=== PATIENT | female | born 1970 | race Caucasian/White ===

== ENCOUNTER 2021-10-21 09:50 | Emergency (ER) | payer MEDICAID, SELFPAY ==
[2021-10-21 09:51] VITALS: BP 131/81; PULSE 84; RESP 14; TEMP 36.3; O2SAT 98; BMI 23.8
--- NOTE | 2021-10-21 10:18 | EX.ED.VIS.UR ---
HPI HPI - URI History of Present Illness Chief Complaint: Ear Problem Informant: patient and spouse/S.O. Onset/Context/Timing Onset: Days (3) Context: Gradual Onset Timing: Continuous Quality: ache Location: left ear Current Severity: Moderate Maximum Severity: Moderate Worsened by: - (nothing) Relieved by: - (nothing) Associated Symptoms Associated Symptoms: Positive for Nasal Congestion, Headache, Myalgias, Vomiting (resolved), Diarrhea (resolved), Nonproductive cough and - (fevers); Negative for Shortness of Breath and Chest Pain Narrative Narrative: Patient presents with an earache for the past 3 days. She states she only had some discharge (small amount) coming out that was thick orange after putting sweet oil in her ear. She states she has had cold symptoms for the past 2 weeks, including cough, myalgias, fevers, occasional vomiting or diarrhea, the GI symptoms are now resolved. states that he has had the same symptoms that she did. When asked if they were tested for Covid, they state that no, they cannot get it for free but then admit that they have not searched for testing at all. They have not been vaccinated. states that someone in their house recently and the autopsy is not back yet. Furthermore, after I discussed the limitations of rapid Covid antigen testing for symptoms for 2 weeks, the states no, she has only had symptoms for 5 days. I asked about the discrepancy here because the patient's clearly stated that she was sick for 2 weeks, and the patient's states she just says stuff. The patient denies any dyspnea. She denies any contact with anyone that they know of with Covid. ROS ROS ED Constitutional Constitutional ED: Reports body ache(s), chills, fatigue, fever(s), headache(s) and malaise Eyes Eyes: Denies change in vision or diplopia ENT ENT ED: Reports ear pain left (Along with trouble hearing out of it), nasal congestion, rhinorrhea and sore throat; Denies tinnitus Cardiovascular Cardiovascular: Denies chest pain or palpitations Respiratory/Chest Respiratory/Chest: Reports cough; Denies dyspnea or dyspnea on exertion Gastrointestinal Gastrointestinal: Reports diarrhea; Denies abdominal pain, nausea or vomiting Genitourinary Genitourinary ED: Denies dysuria or hematuria Musculoskeletal Musculoskeletal: Denies back pain or neck pain Integumentary Denies abscess or rash Neurologic Neurologic: Reports headache(s); Denies paresthesias or weakness Psychiatric Psychiatric: Denies anxiety or suicidal thoughts PFSH PFSH Medical History no medical history no medical history (Patient denies and does not see a doctor regularly) Home Medications azithromycin [Zithromax Z-Elie] 250 mg PO DAILY 6 Days #6 tab 10/21/21 [Rx Last Taken Unknown] Allergy/AdvReac Type Severity Reaction Status Date / Time Penicillins Allergy Nausea/Vom/ Verified 10/21/21 09:54 Diarrhea Surgical History no surgical history no surgical history Social History Smoking Status: Unknown if ever smoked EXAM Physical Exam Const Vital Signs: 10/21/21 09:51 Temperature 97.3 F L Temperature Source Temporal Pulse Rate 84 Respiratory Rate 14 Blood Pressure 131/81 H Blood Pressure Mean 97 Pulse Ox 98 Oxygen Delivery Method Room Air Positive well nourished, well developed and unkempt Constitutional Narrative: Well-appearing, no distress, conversive in full sentences. General Appearance ED: unkempt, well developed and NAD HEENT Reports moist mucous membranes HEENT Narrative: Left TM partially occluded by cerumen, no obvious perforation noted, loss of light reflex, landmarks, along with erythema is noted. No discharge in EAC, some discomfort with manipulation of the pinna and tragus but not severe, without any erythema or edema of the external auditory canal. normocephalic and atraumatic Eyes PERRL and EOMs intact bilaterally Neck full ROM and supple Resp normal respiratory effort and clear to auscultation bilaterally Cardio regular rate, regular rhythm and no murmurs Rate: Negative for tachycardic GI non-tender and non-distended Auscultation: normoactive bowel sounds Palpation: soft Back/Spine no CVA tenderness General Back: other FROM Extremity normal to inspection and no calf tenderness General Extremety ED: Negative for edema, pulses abnormal or tenderness General Extremity: Negative for edema or pulses abnormal Neuro oriented x3, CN's II-XII intact bilaterally and no sensory deficits noted Sensorium / Orientation: awake and alert Motor Exam: strength 5/5 throughout Psych Appearance: unkempt Skin no rashes or lesions noted and no wounds MDM MDM MDM Narrative Medical decision making narrative: I did a rapid antigen Covid test, it returned negative. If the patient has had symptoms for 2 weeks, this would not be unusual even if she had Covid. Therefore PCR was sent as a send out since her oxygenation is excellent and she is otherwise doing okay. Will prescribe her an antibiotic for her ear. She was advised with regards to continuing to isolate per CDC recommendations. Discharge Plan Triage Chief Complaint: Ear Problem ED Provider: Dany Love Dx/Rx/DC Orders Clinical Impression: Left otitis media, Viral URI with cough, Suspected COVID-19 virus infection Instructions: Coronavirus Disease 2019 (COVID-19): Caring for Yourself or Others Prescriptions: New azithromycin [Zithromax Z-Elie] 250 mg tablet 250 mg PO DAILY 6 Days Qty: 6 RF: 0 Primary Care Provider: Care Physician,No Primary Referrals: Serena Oneill [NON-STAFF] - 1 Week if not improving Care Physician,No Primary [Primary Care Provider] - Activity Restrictions/Additional Instructions: Try to get a home portable pulse oximeter and closely watch your oxygen levels periodically. If you stay below 90% for more than a minute or so, and/or you are feeling like your breathing is getting worse, return to the emergency department for further evaluation. Disposition Disposition: Home, Self Care
[2021-10-21] MEDS: Ibuprofen 600 MG Tablet PO (10:33)
== END 2021-10-21 11:50 | disposition home or self-care (01) ==
PROVIDERS: Emergency Provider Emergency Medicine
DX: H66.92 Otitis media, unspecified, left ear (principal); J06.9 Acute upper respiratory infection, unspecified; Z20.822 Contact with and (suspected) exposure to COVID-19
CPT/HCPCS: 87426; 87635; 99283; U0005; U0003

== ENCOUNTER 2022-03-20 08:09 | Emergency (ER) | payer MEDICAID, SELFPAY ==
[2022-03-20 08:13] VITALS: BP 107/88; PULSE 76; RESP 17; TEMP 36.4; O2SAT 88; BMI 22.9
[2022-03-20 08:24] VITALS: O2SAT 94
[2022-03-20 08:27] VITALS: BP 107/88; PULSE 73; RESP 16; TEMP 36.4; O2SAT 94
--- NOTE | 2022-03-20 08:58 | RAD_ITS ---
STUDY: X-RAY CHEST REASON FOR EXAM: Female, 51 years old. SOB, cough x 2-3 days TECHNIQUE: Single frontal view COMPARISON: None. FINDINGS: There is mild right peribronchial cuffing. The peripheral lungs are clear bilaterally. There is no demonstrated pleural abnormality. Normal size heart. Normal mediastinum and brunilda. Normal visualized pulmonary arteries. Normal visualized aortic arch and descending thoracic aorta. Normal visualized thoracic spine. Normal visualized ribs, clavicles, and shoulders. There is no demonstrated abnormality of the visualized soft tissue structures of the upper abdomen. RAD/Chest 1 View (Portable) IMPRESSION: Mild right peribronchial cuffing. Electronically Signed: Kaleb Morrow MD at 9:47 EDT ,
--- NOTE | 2022-03-20 12:12 | ED.RN ---
SEE DOWNTIME DOCUMENTATION
--- NOTE | 2022-03-20 12:58 | EX.ED.VIS.UR ---
HPI HPI - URI History of Present Illness Chief Complaint: Cough Informant: patient Onset/Context/Timing Onset: Days (2) Context: Gradual Onset Timing: Continuous Quality: Pushing Location: Chest Worsened by: - (Coughing) Relieved by: - (Nothing) Associated Symptoms Associated Symptoms: Positive for Shortness of Breath, Chest Pain and Nonproductive cough; Negative for Nasal Congestion, Headache, Sinus Pressure, Myalgias, Nausea, Vomiting, Diarrhea, Hemoptysis and Productive Cough Narrative Narrative: Patient presents with cough and earache for the past 2 days. Patient states that her symptoms have gradually gotten worse. Patient admits to some pain in her chest. Patient feels like somebody is pushing on her chest. Patient states it is worse with coughing. Patient denies any sputum production. Patient admits to some subjective chills but denies any fevers. Patient admits to a mild sore throat. Patient states her pain radiates into her back. Patient denies any headaches. ROS ROS ED Constitutional Constitutional ED: Reports chills and subjective; Denies fever(s) Eyes Eyes: Denies blurry vision or change in vision ENT ENT ED: Reports ear pain right and sore throat; Denies rhinorrhea Cardiovascular Cardiovascular: Reports chest pain; Denies palpitations Respiratory/Chest Respiratory/Chest: Reports cough and dyspnea Gastrointestinal Gastrointestinal: Denies nausea or vomiting Genitourinary Genitourinary ED: Denies dysuria or hematuria Musculoskeletal Musculoskeletal: Reports back pain; Denies neck pain Integumentary Denies abscess or rash Neurologic Neurologic: Denies headache(s) or weakness Allergic/Immunologic Allergic/Immunologic ED: Denies mouth swelling or urticaria PFSH PFSH Medical History no medical history no medical history Home Medications NK 03/20/22 [History Last Taken Unknown] Allergy/AdvReac Type Severity Reaction Status Date / Time Penicillins Allergy Nausea/Vom/ Verified 03/20/22 08:10 Diarrhea Surgical History no surgical history no surgical history Social History Smoking Status: Current every day smoker tobacco type: cigarettes EXAM Physical Exam Const Vital Signs: 03/20/22 08:13 03/20/22 08:24 03/20/22 08:27 Temperature 97.6 F L 97.6 F L Temperature Source Temporal Oral Pulse Rate 76 73 Respiratory Rate 17 16 Respiratory Effort Short of Breath Respiratory Depth Normal Respiratory Pattern Normal Blood Pressure 107/88 H 107/88 H Blood Pressure Mean 94 94 Pulse Ox 88 94 Oxygen Delivery Method Room Air Room Air Room Air Positive well nourished and well developed General Appearance ED: well developed HEENT Reports TM's clear and moist mucous membranes External Ear: external ears normal External Auditory Canal: EAC's abnormal right excessive cerumen Tympanic Membrane ED: Yes TM's clear bilateral Neck supple and no JVD Resp normal respiratory effort and clear to auscultation bilaterally Cardio regular rate, regular rhythm and no murmurs GI normal to inspection, nondistended, normoactive bowel sounds and non-tender Palpation: soft Extremity normal to inspection General Extremety ED: Negative for edema or tenderness General Extremity: Negative for edema Neuro oriented x3, CN's II-XII intact bilaterally and no sensory deficits noted Sensorium / Orientation: alert Motor Exam: strength 5/5 throughout Psych mental status grossly normal Skin no rashes or lesions noted MDM MDM MDM Narrative Medical decision making narrative: Patient was given a DuoNeb aerosol here. COVID-19 rapid antigen was obtained and was negative. Influenza A and influenza B swabs were obtained and were negative. Portable 1 view chest x-ray was obtained. On my interpretation, lung campos are clear. There is normal cardiac silhouette. Bony thorax is normal. There is no acute process noted. Radiologist also interpreted the x-ray and agrees. Patient was advised of her findings. Patient was advised that this is most likely a viral upper respiratory infection. Patient was instructed to follow-up with her primary care physician in 5 to 7 days. Patient understood and was agreeable with the plan. All questions were answered. Discharge Plan Triage Chief Complaint: Cough ED Provider: Dioni Miguel Dx/Rx/DC Orders Clinical Impression: Viral upper respiratory tract infection with cough Prescriptions: No Action NK RF: 0 Primary Care Provider: Care Physician,No Primary Referrals: Care Physician,No Primary [Primary Care Provider] - Disposition Disposition: Home, Self Care Discharge Date/Time: 03/20/22 10:30
== END 2022-03-20 10:30 | disposition home or self-care (01) ==
PROVIDERS: Emergency Provider Emergency Medicine; Visit Provider Emergency Medicine
DX: J06.9 Acute upper respiratory infection, unspecified (principal); F17.210 Nicotine dependence, cigarettes, uncomplicated
CPT/HCPCS: 71045; 87428; 99282

== ENCOUNTER → 2024-12-26 | Outpatient (CLI) | payer MEDICAID, SELFPAY | END | disposition home or self-care (01) | LOC: PSN 12:45 | PROVIDERS: Referring Provider Internal Medicine Hematology & Oncology; Visit Provider Internal Medicine Hematology & Oncology | DX: C34.90 Malignant neoplasm of unspecified part of unspecified bronchus or lung (principal) | CPT/HCPCS: 94060; 94726; 94729 ==

== ENCOUNTER → 2025-07-24 | Outpatient (CLI) | payer MEDICAID, SELFPAY ==
--- NOTE | 2025-07-24 12:32 | MRI_ITS ---
PROCEDURE: MRI BRAIN W/WO CONTRAST 07/24/2025 REASON FOR EXAM: HEADACHE; H/O NSCLC R/O SIMULATION ANALYST METASTASIS TECHNIQUE: Procedure Code: [id number] Modality: MR Procedure: BRAIN W/WO CONTRAST Multiplanar and multisequential MRI of the brain was performed without and with IV gadolinium based contrast administration. CONTRAST: Clariscan VOLUME: 10 mL COMPARISON: None available. FINDINGS: No intracranial mass lesion or pathologic enhancement; no evidence for intracranial metastatic disease. The ventricular and sulcal size and configuration are within normal limits. No regions of abnormal restricted diffusion or susceptibility signal. No intracranial hemorrhage or extra-axial collection. Few scattered small foci of T2 FLAIR hyperintensity in the supratentorial white matter, primarily in the frontal lobes, nonspecific but most likely related to mild leukoaraiosis, and/or commonly seen associated with migraine headaches. Preserved major intracranial vascular flow voids. The visualized skull base and calvarium, orbital contents, paranasal sinuses and bilateral mastoid air cells appear unremarkable. MRI/Brain W/WO Contrast IMPRESSION: No acute intracranial abnormality or evidence for metastatic disease. Few scattered foci of T2 FLAIR hyperintensity in the supratentorial white matte r; nonspecific but most likely reflects mild leukoaraiosis, and commonly seen with migraine headaches. Reading Location: [id number]
--- NOTE | 2025-07-24 12:32 | MRI_ITS ---
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 CONTRAST: Clariscan VOLUME: 10 mL COMPARISON: None available. FINDINGS: No intracranial mass lesion or pathologic enhancement; no evidence for intracranial metastatic disease. The ventricular and sulcal size and configuration are within normal limits. No regions of abnormal restricted diffusion or susceptibility signal. No intracranial hemorrhage or extra-axial collection. Few scattered small foci of T2 FLAIR hyperintensity in the supratentorial white matter, primarily in the frontal lobes, nonspecific but most likely related to mild leukoaraiosis, and/or commonly seen associated with migraine headaches. Preserved major intracranial vascular flow voids. The visualized skull base and calvarium, orbital contents, paranasal sinuses and bilateral mastoid air cells appear unremarkable. MRI/Brain W/WO Contrast IMPRESSION: No acute intracranial abnormality or evidence for metastatic disease. Few scattered foci of T2 FLAIR hyperintensity in the supratentorial white matte r; nonspecific but most likely reflects mild leukoaraiosis, and commonly seen with migraine headaches. Reading Location: [id number]
[2025-07-24] MEDS: 0.9% Saline Lock 10 ML Syringe IV (13:43)
== END | disposition home or self-care (01) ==
PROVIDERS: Referring Provider Nurse Practitioner Family; Visit Provider Nurse Practitioner Family
DX: R51.9 Headache, unspecified (principal); C77.9 Secondary and unspecified malignant neoplasm of lymph node, unspecified; C34.32 Malignant neoplasm of lower lobe, left bronchus or lung
CPT/HCPCS: 70553; A9575; A4216